=== PATIENT | female | born 1990 | race African-American/Black ===

== ENCOUNTER 2016-12-31 19:49 | Emergency (ER) | payer MEDICAID ==
--- NOTE | 2016-12-31 22:50 | ER Document Report ---
ED GI/ - General Chief Complaint: Abdominal Pain Stated Complaint: ABDOMINAL PAIN,VOMITING Notes: The patient is a 26-year-old female, , presents with lower abdominal cramping after starting her period today. She took Motrin with relief of her symptoms, but the cramping returned. She also vomited once. She denies nausea, hematuria, vaginal discharge, fevers, back pain, flank pain, chest pain, shortness of breath or rash. TRAVEL OUTSIDE OF THE [place] IN LAST 30 DAYS: No - Related Data Allergies/Adverse Reactions: No Known Allergies Allergy (Verified 12/31/16 20:21) Past Medical History - General Information source: Patient - Social History Smoking Status: Unknown if Ever Smoked Family History: Reviewed & Not Pertinent, Other - Mother with breast cancer. Patient has suicidal ideation: No Patient has homicidal ideation: No Neurological Medical History: Denies: Hx Seizures Renal/ Medical History: Denies: Hx Peritoneal Dialysis Psychiatric Medical History: Reports: Hx Anxiety, Hx Depression Past Surgical History: Reports: Hx Cholecystectomy, Hx Oral Surgery - wisdom teeth removed. Denies: Hx Hysterectomy - Immunizations Immunizations up to date: Yes Hx Diphtheria, Pertussis, Tetanus Vaccination: Yes - unknown Review of Systems - Review of Systems Notes: REVIEW OF SYSTEMS: CONSTITUTIONAL: -fevers, -chills EENT: -eye pain, -difficulty swallowing, -nasal congestion CARDIOVASCULAR:-chest pain, -syncope. RESPIRATORY: -cough, -SOB GASTROINTESTINAL: +abdominal pain, - nausea, +vomiting, -diarrhea GENITOURINARY: -dysuria, -hematuria MUSCULOSKELETAL: -back pain, -neck pain SKIN: -rash or skin lesions. HEMATOLOGIC: -easy bruising or bleeding. LYMPHATIC: -swollen, enlarged glands. NEUROLOGICAL: -altered mental status or loss of consciousness, -headache, - neurologic symptoms PSYCHIATRIC: -anxiety, -depression. ALL OTHER SYSTEMS REVIEWED AND NEGATIVE. Physical Exam - Vital signs Vitals: Temp Pulse Resp BP Pulse Ox 98.5 F 103 H 18 139/97 H 100 12/31/16 20:19 12/31/16 20:19 12/31/16 20:19 12/31/16 20:19 12/31/16 20:19 - Notes Notes: PHYSICAL EXAMINATION: GENERAL: Well-appearing, well-nourished and in no acute distress. HEAD: Atraumatic, normocephalic. EYES: Pupils equal round and reactive to light, extraocular movements intact, sclera anicteric, conjunctiva are normal. ENT: nares patent, oropharynx clear without exudates. Moist mucous membranes. NECK: Normal range of motion, supple without lymphadenopathy LUNGS: Breath sounds clear to auscultation bilaterally and equal. No wheezes rales or rhonchi. HEART: Regular rate and rhythm without murmurs ABDOMEN: Soft, nontender, normoactive bowel sounds. No guarding, no rebound. No masses appreciated. EXTREMITIES: Normal range of motion, no pitting or edema. No cyanosis. NEUROLOGICAL: Cranial nerves grossly intact. Normal speech, normal gait. Normal sensory, motor, and reflex exams. PSYCH: Normal mood, normal affect. SKIN: Warm, Dry, normal turgor, no rashes or lesions noted. Course - Re-evaluation Re-evalutation: Patient's abdominal exam is completely nontender. Her tachycardia resolved. Urinalysis does not show any evidence of UTI and she is not . Instructed patient to continue anti-inflammatories and follow up at OB if her periods continue to be painful. - Vital Signs Vital signs: Temp Pulse Resp BP Pulse Ox 98.1 F 105 H 12 126/75 H 100 01/01/17 00:39 01/01/17 00:39 01/01/17 00:39 01/01/17 00:39 12/31/16 20:19 - Laboratory Laboratory results interpreted by me: 12/31/16 22:45 Urine Protein >=500 H Urine Glucose (UA) 50 H Urine Blood LARGE H Ur Leukocyte Esterase TRACE H Discharge - Discharge Clinical Impression: Metrorrhagia Condition: Stable Disposition: HOME, SELF-CARE Additional Instructions: Continue taking Motrin or Naprosyn to help with any abdominal cramping. You may use Zofran to help with any nausea. Follow-up with the candlemaker. VAGINAL BLEEDING: You are having an episode of abnormal bleeding. Causes of abnormal vaginal bleeding can include miscarriage or tubal , tumors such as cancer or benign fibroids, medication effects, or hormone imbalance. Testing can eliminate unsuspected , tumors, or infection as a cause. "Dysfunctional uterine bleeding" is due to hormone imbalance, and is especially common at times when the normal cycle is disturbed -- whether by recent , use of control pills or hormones, or impending menopause. If the bleeding is innocent, most commonly a short course of hormones is given to restore the uterus to normal. Sometimes, the normal menstrual cycle corrects itself naturally. Sometimes , brief hormone therapy, or even a D&C is required. Your physician will advise you. Treatment for anemia may be required if bleeding is severe. You should rest and avoid intercourse until the bleeding is controlled. Call the doctor or return for re-examination if you feel faint, have increasing pain, or have a major increase in the amount of bleeding. NORMAL EXAM AND WORKUP: At this time, except for vaginal bleeding, your examination and workup show no significant abnormality. No significant abnormal physical findings were noted. All laboratory, EKG, and imaging (x-ray, CT scans, ultrasound) studies that were ordered show no significant abnormality. Although your examination and all studies that were ordered showed no significant abnormal finding, there are no examinations and no studies that are 100% accurate. There is always the possibility that some abnormality could exist and not be detected with physical examination or within the limits and capabilities of laboratory and other studies. You should return or follow up as you were instructed on your visit today for further evaluation if your symptoms do not resolve. FOLLOW-UP CARE: If you have been referred to a physician for follow-up care, call the physician s office for an appointment as you were instructed or within the next two days. If you experience worsening or a significant change in your symptoms (very heavy bleeding with large clots of blood, passage of tissue, more severe abdominal / pelvic pain or cramping, feeling faint or severe weakness, fever, etc.), notify the physician immediately or return to the Emergency Department at any time for re-evaluation. OBSTETRIC-GYNECOLOGIC (OB-PRINT BINDING WORKER) [facility]YS[facility]ANS IN [place]: [facility] [address] [place], [place] [phone] [facility] [address] [place] [address] [phone] ABDOMINAL PAIN: There are many causes of abdominal pain. Pain can mean a serious problem requiring surgery (such as appendicitis). It can also be an innocent problem that goes away on its own (such as a viral infection). Often, time must pass to determine the cause of pain. The physician does not feel that hospitalization is necessary, at present. Things may change within the next 24 hours. Call the doctor or come back for re- examination if any problems occur, such as: (1) Pain that becomes more severe, steady, or becomes concentrated in one specific area. Also, pain that is more severe with movement or coughing. (2) Vomiting that persists or becomes more frequent. (3) Blood in the vomitus, urine, or bowel movements. Blood in the stool may have a tarry or black appearance. (4) Shaking chills or fever greater than 100 degrees F. (5) The abdomen becomes more distended or swollen. (6) Bowel movements cease. (7) Failure to improve as expected. NORMAL EXAM AND WORKUP: At this time, your examination and workup show no significant abnormality. No significant abnormal physical findings are noted. All laboratory, EKG, and imaging (x-ray, CT scans, ultrasound) studies that were ordered show no significant abnormality. Although your examination and all studies that were ordered showed no significant abnormal finding, there are no examinations and no studies that are 100% accurate. There is always the possibility that some abnormality could exist and not be detected with physical examination or within the limits and capabilities of laboratory and other studies. You should return or follow up as you were instructed on your visit today for further evaluation if your symptoms do not resolve. ANTINAUSEA MEDICATION: You have been given a medication to suppress nausea and vomiting. This type of medication can be given as a shot, pill, or suppository. It will usually last for many hours. Pills and shots usually last six to eight hours, suppositories last about 12 hours. For the typical illness, only one or two doses of the medication may be necessary. Mild lightheadedness may occur. This type of medicine can cause drowsiness. Do not drive or operate dangerous machinery while under its influence. Do not mix with alcohol. See your doctor at once if you have muscle spasms or tightness, or uncontrollable motions (particularly of the neck, mouth, or jaw). Persistent vomiting or severe lightheadedness should also be evaluated by the physician. FOLLOW-UP CARE: If you have been referred to a physician for follow-up care, call the physician s office for an appointment as you were instructed or within the next two days. If you experience worsening or a significant change in your symptoms, notify the physician immediately or return to the Emergency Department at any time for re-evaluation. Prescriptions: Ondansetron [Zofran Odt 4 mg Tablet] 1 - 2 tab PO Q4H PRN #15 tab.rapdis PRN Reason: For Nausea/Vomiting Forms: Return to Work
[2016-12-31 23:28] LABS: APPEARANCE,URINE TURBID; BILIRUBIN,URINE NEGATIVE (NEGATIVE); GLUCOSE, URINE 50 mg/dL (NEGATIVE); KETONES,URINE NEGATIVE (NEGATIVE); LEUKOCYTE ESTERASE,URINE TRACE (NEGATIVE); NITRITE,URINE NEGATIVE (NEGATIVE); PROTEIN,URINE >=500 mg/dL (NEGATIVE); URINE SPECIFIC GRAVITY 1.033; UROBILINOGEN,URINE NEGATIVE mg/dL (<2.0)
[2017-01-01 00:40] VITALS: BP 126/75
== END 2017-01-01 00:40 | disposition home or self-care (01) ==
LOC: ER 19:49
DX: N92.1 Excessive and frequent menstruation with irregular cycle (principal); R10.30 Lower abdominal pain, unspecified; R11.10 Vomiting, unspecified; Z90.49 Acquired absence of other specified parts of digestive tract
CPT/HCPCS: 81001; 81025; 99284

== ENCOUNTER 2019-07-21 00:45 | Emergency (ER) | payer SELFPAY ==
[2019-07-21 03:33] LABS: APPEARANCE,URINE SLIGHTLY-CLOUDY; BILIRUBIN,URINE NEGATIVE (NEGATIVE); COLOR,URINE YELLOW; GLUCOSE, URINE NEGATIVE (NEGATIVE); KETONES,URINE NEGATIVE (NEGATIVE); LEUKOCYTE ESTERASE,URINE LARGE (NEGATIVE); NITRITE,URINE NEGATIVE (NEGATIVE); PROTEIN,URINE NEGATIVE (NEGATIVE); URINE SPECIFIC GRAVITY 1.013; UROBILINOGEN,URINE NEGATIVE mg/dL (<2.0)
[2019-07-21] MEDS ORDERED: KETOROLAC TROMETHAMINE 60 MG/2 ML SDV IM ONE (04:11)
--- NOTE | 2019-07-21 04:26 | ER Document Report ---
HPI - HPI Time Seen by Provider: 07/21/19 04:04 Pain Level: 4 Context: Patient is a 28-year-old female that comes emergency department for chief complaint of lower back pain. She states she is currently on her menstrual cycle and she typically gets cramps and pain in her lower back, however she states this usually goes away with simple ibuprofen and tonight it would not and she could not get comfortable or sleep. She denies dysuria, vaginal discharge, severe/extreme vaginal bleeding, dizziness, abdominal pain beyond the cramping which she would expect. She denies fever/chills. She denies history of ovarian cysts, surgeries, or any other complaints. - REPRODUCTIVE LMP: 07/18/19 Reproductive: DENIES: : Past Medical History - General Information source: Patient - Social History Smoking Status: Never Smoker Chew tobacco use (# tins/day): No Frequency of alcohol use: once a week Drug Abuse: None Lives with: Family Family History: Reviewed & Not Pertinent, Other - Mother with breast cancer. Patient has suicidal ideation: No Patient has homicidal ideation: No Neurological Medical History: Denies: Hx Seizures Renal/ Medical History: Denies: Hx Peritoneal Dialysis Psychiatric Medical History: Reports: Hx Anxiety, Hx Depression Past Surgical History: Reports: Hx Cholecystectomy, Hx Oral Surgery - wisdom teeth removed. Denies: Hx Hysterectomy - Immunizations Immunizations up to date: Yes Hx Diphtheria, Pertussis, Tetanus Vaccination: Yes - unknown Vertical Provider Document - CONSTITUTIONAL General Appearance: WD/WN, No Apparent Distress - Sleeping but easily aroused - INFECTION CONTROL TRAVEL OUTSIDE OF THE [place] IN LAST 30 DAYS: No - HEENT HEENT: Atraumatic, Normocephalic - NECK Neck: Normal Inspection - RESPIRATORY Respiratory: Breath Sounds Normal, No Respiratory Distress - CARDIOVASCULAR Cardiovascular: Regular Rate, Regular Rhythm - GI/ABDOMEN Gastrointestinal: Abdomen Soft, Abdomen Non-Tender. negative: Abdomen Tender - BACK Back: Normal Inspection - MUSCULOSKELETAL/EXTREMETIES Musculoskeletal/Extremeties: MAEW, FROM, Non-Tender - NEURO Level of Consciousness: Awake, Alert, Appropriate Motor/Sensory: No Motor Deficit, No Sensory Deficit - DERM Integumentary: Warm, Dry, No Rash Course - Re-evaluation Re-evalutation: Patient is sleeping but easily aroused. She has no noted back pain on evaluation, her abdomen is soft and benign, she states she feels improved at this time. She still is getting intermittent waves of pain, she states she is used to this pain but it is worse than usual. Her urinalysis shows possible infection but is also showing contamination with squamous epithelials and blood. test is negative. I discussed with patient. Because of her benign exam, because she is used to the symptoms from previously, she will be treated with Toradol and given Toradol at home, she will follow-up, she return if she worsens. She was provided with work-release. Patient states appreciation and agreement. Stable at time of discharge. - Vital Signs Vital signs: Temp Pulse Resp BP Pulse Ox 98.7 F 80 18 128/78 H 100 07/21/19 00:56 07/21/19 00:56 07/21/19 00:56 07/21/19 00:56 07/21/19 00:56 - Laboratory Laboratory results interpreted by me: 07/21/19 03:05 Urine Blood LARGE H Ur Leukocyte Esterase LARGE H Discharge - Discharge Clinical Impression: Lower back pain Qualifiers: Chronicity: acute Back pain laterality: unspecified Sciatica presence: without sciatica Qualified Code(s): M54.5 - Low back pain Condition: Stable Disposition: HOME, SELF-CARE Additional Instructions: We have a urine culture growing in the lab. Drink plenty of fluids, take the prescribed medication as needed for pain, symptoms should resolve with time. Return if you worsen including vomiting, fever, heavy bleeding with dizziness, numbness, or any other concerning or worsening symptoms. Prescriptions: Ketorolac Tromethamine [Toradol 10 mg Tablet] 10 mg PO Q8HP PRN #24 tablet PRN Reason: Forms: Return to Work
[2019-07-21 04:45] VITALS: BP 127/85
== END 2019-07-21 04:45 | disposition home or self-care (01) ==
LOC: ER 00:45
DX: M54.5 Low back pain (principal); Z90.49 Acquired absence of other specified parts of digestive tract
CPT/HCPCS: 81025; 81001; J1885; 87086; 87088

== ENCOUNTER 2020-03-07 14:09 | Emergency (ER) | payer SELFPAY ==
--- NOTE | 2020-03-07 16:15 | ER Document Report ---
HPI - HPI Patient complains to provider of: left face pain Pain Level: 4 Notes: 29-year-old female presenting today with right-sided face pain starting last night. Is in the inside of her mouth hurts. Pain is localized to the right cheek. There is no swelling of her face. She reports she does have a mild sore throat. States she took an ibuprofen which provided minimal relief. States the pain is described as a sharp pain. No pain with jaw movements. There is no swelling to her cheek. No numbness or tingling. Last menstrual period was approximately 3 weeks ago - EENT EENT: REPORTS: Sore Throat Notes: pain in cheek - NEURO Neurology: DENIES: Headache - CARDIOVASCULAR Cardiovascular: DENIES: Chest pain - RESPIRATORY Respiratory: DENIES: Trouble Breathing - GASTROINTESTINAL Gastrointestinal: DENIES: Abdominal Pain - URINARY Urinary: DENIES: Dysuria - REPRODUCTIVE Reproductive: DENIES: : Past Medical History - Social History Smoking Status: Never Smoker Chew tobacco use (# tins/day): No Frequency of alcohol use: None Drug Abuse: None Family History: Reviewed & Not Pertinent, Other - Mother with breast cancer. - Past Medical History Cardiac Medical History: Reports: None Pulmonary Medical History: Reports: None Neurological Medical History: Denies: Hx Seizures Endocrine Medical History: Reports: None Renal/ Medical History: Denies: Hx Peritoneal Dialysis Malignancy Medical History: Reports: None GI Medical History: Reports: None Psychiatric Medical History: Reports: Hx Anxiety, Hx Depression Past Surgical History: Reports: Hx Cholecystectomy, Hx Oral Surgery - wisdom teeth removed. Denies: Hx Hysterectomy - Immunizations Immunizations up to date: Yes Hx Diphtheria, Pertussis, Tetanus Vaccination: Yes - unknown Vertical Provider Document - CONSTITUTIONAL Notes: Adult General: GENERAL: Alert, interacts well. No acute distress HEAD: Normocephalic, atraumatic EYES: Pupils equal, round and reactive to light. Extraocular movements intact. ENT: Small halo ulcer on inside of right cheek. No swelling. No palpable masses. No stones at parotid duct. Oral mucosa moist, tongue midline. Oropharynx unremarkable. Airway patent. Nares patent, sinuses nontender. No Trismus. NECK: Full range of motion. Supple. Trachea midline. No lymphadenopathy. ABDOMEN: Soft, nontender. Nondistended. GENITOURINARY: Deferred EXTREMITIES: Moves all 4 extremities spontaneously. BACK: Moves all extremities with full range of motion. NEUROLOGICAL: Alert and oriented x3. Normal speech. PSYCH: Normal affect, normal mood. SKIN: Warm, dry, normal turgor. - INFECTION CONTROL TRAVEL OUTSIDE OF THE [place] IN LAST 30 DAYS: No Course - Re-evaluation Re-evalutation: 03/07/20 16:16 Patient with small sore on the inside of her right cheek. The gland is not swollen. She does state it is non-tender to palpation. No visible duct at parotid gland. Parotid gland is non swollen, non tender. She has a sore throat will swab her for strep. Neck is nontender. I considered allergic reaction, bite, infected parotid gland. 03/07/20 16:17 Patients strep is negative. Discussed these findings with the patient. Patient continues to be in no acute distress. Discussed aphthous ulcer with patient. She can use Orajel to help alleviate the pain. She also use Tylenol and ibuprofen. I did discussed return precautions with the patient to include worsening symptoms or development of new symptoms. Recommend follow-up with primary care provider for further evaluation. All questions answered. - Vital Signs Vital signs: Temp Pulse Resp BP Pulse Ox 98.7 F 80 14 122/69 100 03/07/20 15:52 03/07/20 14:13 03/07/20 14:13 03/07/20 14:13 03/07/20 14:13 Discharge - Discharge Clinical Impression: Aphthous ulcer of mouth Condition: Stable Disposition: HOME, SELF-CARE Additional Instructions: You are being treated for an aphthous ulcer on the right inner cheek. Your exam is reassuring. you have no swelling of the parotid gland. Throat is unremarkable. You may apply Orajel to that area to help decrease pain. You may also use Tylenol and ibuprofen to help alleviate pain. Please return to the emergency department if your symptoms worsen or develop new symptoms. Please follow-up with your primary care provider soon as possible Forms: Return to Work
[2020-03-07] MEDS ORDERED: LIDOCAINE 2% VISCOUS SOLN 15 ML UDCUP PO ONE (17:17)
[2020-03-07 17:49] VITALS: BP 119/76
== END 2020-03-07 17:48 | disposition home or self-care (01) ==
LOC: ER 14:09
DX: K12.0 Recurrent oral aphthae (principal); J02.9 Acute pharyngitis, unspecified
CPT/HCPCS: 99283; 87070; 87880; J3490

== ENCOUNTER 2020-03-19 04:37 | Emergency (ER) | payer SELFPAY ==
[2020-03-19 04:45] VITALS: BP 123/63
[2020-03-19] MEDS ORDERED: KETOROLAC TROMETHAMINE 60 MG/2 ML SDV IM ONE (09:24)
[2020-03-19 09:31] LABS: APPEARANCE,URINE CLOUDY; BILIRUBIN,URINE NEGATIVE (NEGATIVE); COLOR,URINE RED; GLUCOSE, URINE NEGATIVE (NEGATIVE); KETONES,URINE NEGATIVE (NEGATIVE); LEUKOCYTE ESTERASE,URINE SMALL (NEGATIVE); NITRITE,URINE NEGATIVE (NEGATIVE); PROTEIN,URINE 100 mg/dL (NEGATIVE); URINE SPECIFIC GRAVITY 1.017; UROBILINOGEN,URINE NEGATIVE mg/dL (<2.0)
--- NOTE | 2020-03-19 10:23 | ER Document Report ---
Entered by VARINDER NIX SCRIBE 03/19/20 0925 Acting as scribe for:KOURTNEY HUDSON MD ED General - General Chief Complaint: Back Pain Stated Complaint: BACK PAIN Time Seen by Provider: 03/19/20 07:41 Information source: Patient Notes: This 29 year old female patient presents to the emergency department today with complaints of bilateral lower back pain. Patient states she has lower back pain during her menstrual cycle every month. Patient states this began x4 years ago in 2016 after giving to her daughter. Patient states her periods are not heavy and is currently in the third day of her menstrual cycle. Patient denies any control and has not seen a Canceling Machine Operator for these symptoms. Patient states she has taken x4 500mg tablets of Tylenol daily for her back pain. Denies any fever, N/V, chills, sore throat, or burning when urinating. TRAVEL OUTSIDE OF THE [place] IN LAST 30 DAYS: No - Related Data Allergies/Adverse Reactions: No Known Allergies Allergy (Verified 07/21/19 01:33) Past Medical History - General Information source: Patient - Social History Smoking Status: Never Smoker Cigarette use (# per day): No Chew tobacco use (# tins/day): No Frequency of alcohol use: Occasional Drug Abuse: None Lives with: Family Family History: Reviewed & Not Pertinent, Other - Mother with breast cancer. Patient has homicidal ideation: No Psychiatric Medical History: Reports: Hx Anxiety, Hx Depression Past Surgical History: Reports: Hx Cholecystectomy, Hx Oral Surgery - wisdom teeth removed - Immunizations Immunizations up to date: Yes Hx Diphtheria, Pertussis, Tetanus Vaccination: Yes - unknown Review of Systems - Review of Systems Constitutional: See HPI. denies: Chills, Fever EENT: See HPI. denies: Throat pain Cardiovascular: No symptoms reported Respiratory: No symptoms reported Gastrointestinal: See HPI. denies: Nausea, Vomiting Genitourinary: See HPI. denies: Burning Female Genitourinary: See HPI. denies: Heavy/abnormal periods Musculoskeletal: See HPI, Back pain - bilateral lower Skin: No symptoms reported Hematologic/Lymphatic: No symptoms reported Neurological/Psychological: No symptoms reported -: Yes All other systems reviewed and negative Physical Exam - Vital signs Vitals: Temp Pulse Resp BP Pulse Ox 98.8 F 82 20 123/63 99 03/19/20 04:43 07/11/20 04:43 03/19/20 04:43 03/19/20 04:43 03/19/20 04:43 - General General appearance: Appears well, Alert - HEENT Head: Normocephalic, Atraumatic Eyes: Normal Pupils: PERRL - Respiratory Respiratory status: No respiratory distress Chest status: Nontender Breath sounds: Normal Chest palpation: Normal - Cardiovascular Rhythm: Regular Heart sounds: Normal auscultation Murmur: No - Abdominal Inspection: Normal Distension: No distension Bowel sounds: Normal Tenderness: Nontender - Back Back: Nontender - bilateral lower back - Extremities General upper extremity: Normal inspection. No: Edema General lower extremity: Normal inspection. No: Edema - Neurological Neuro grossly intact: Yes Cognition: Normal Orientation: AAOx4 Speech: Normal - Psychological Associated symptoms: Normal affect, Normal mood - Skin Skin Temperature: Warm Skin Moisture: Dry Skin Color: Normal Course - Re-evaluation Re-evalutation: 03/19/20 10:17 Patient feeling better pain-free at this time. Patient has received IM shot injection of ketorolac. - Vital Signs Vital signs: Temp Pulse Resp BP Pulse Ox 98.8 F 82 20 123/63 99 03/19/20 04:57 03/19/20 04:43 03/19/20 04:43 03/19/20 04:43 03/19/20 04:43 03/19/20 10:18 Vital signs stable no acute process. - Laboratory Laboratory results interpreted by me: 03/19/20 09:00 Urine Protein 100 H Urine Blood LARGE H Ur Leukocyte Esterase SMALL H Urine Ascorbic Acid 20 H Patient is currently on her menstrual cycle therefore contaminated urine with large amount of blood small leukocyte esterase. Discharge - Discharge Clinical Impression: Menorrhagia Condition: Stable Disposition: HOME, SELF-CARE Additional Instructions: Vaginal Bleeding You are having an episode of abnormal bleeding. Causes of abnormal vaginal bleeding can include miscarriage or tubal , tumors such as cancer or benign fibroids, medication effects, or hormone imbalance. Testing can eliminate unsuspected , tumors, or infection as a cause. "Dysfunctional uterine bleeding" is due to hormone imbalance, and is especially common at times when the normal cycle is disturbed -- whether by recent , use of control pills or hormones, or impending menopause. If the bleeding is innocent, most commonly a short course of hormones is given to restore the uterus to normal. Sometimes, the normal menstrual cycle corrects itself naturally. Sometimes, brief hormone therapy, or even a D&C is required. Your physician will advise you. Treatment for anemia may be required if bleeding is severe. You should rest and avoid intercourse until the bleeding is controlled. Call the doctor or return for re-examination if you feel faint, have increasing pain, or have a major increase in the amount of bleeding. You have pain with menstrual cycles this has been present since 2016. We strongly advised that you follow-up with a clerical proofreader and we are going to refer you to the on-call clerical proofreader is windows consultant for today for follow-up also will write a prescription for you to begin ibuprofen 800 mg 3 times a day with meals if needed for pain. Prescriptions: Ibuprofen [Motrin 800 mg Tablet] 800 mg PO Q8H PRN #30 tab PRN Reason: pain Referrals: PHI WEINBERG MD [ACTIVE PROVISIONAL STAFF] - Follow up as needed I personally performed the services described in the documentation, reviewed and edited the documentation which was dictated to the scribe in my presence, and it accurately records my words and actions.
== END 2020-03-19 10:15 | disposition home or self-care (01) ==
LOC: ER 04:37
DX: N92.0 Excessive and frequent menstruation with regular cycle (principal); M54.5 Low back pain
CPT/HCPCS: 99283; 96372; 81025; 81001; J1885